=== PATIENT | female | born 1995 | race Caucasian/White ===

== ENCOUNTER 2019-01-17 11:14 | Emergency (ER) | payer SELFPAY | END 2019-01-17 12:10 | disposition left against medical advice (07) | LOC: ER 11:14 | DX: Z53.20 Procedure and treatment not carried out because of patient's decision for unspecified reasons (principal) ==

== ENCOUNTER 2019-01-17 18:08 | Emergency (ER) | payer MEDICAID ==
[2019-01-17] MEDS ORDERED: 0.9 % SODIUM CHLORIDE 1,000 ML BAG IV ONE ×2 (18:44→19:31)
--- NOTE | 2019-01-17 18:50 | Emergency Department Record ---
History of Present Illness - General Chief Complaint: Abdominal Pain Stated Complaint: PREG AMD CRAMPING Time Seen by Provider: 01/17/19 18:44 Source: Patient Mode of Arrival: Ambulatory - History of Present Illness Initial Comments: The patient is a [id number] EDC [birth year] who is 15 weeks . She wishes to deliver at [facility] although has not established care as she just moved here from [place]. She states that today she has had "intense cramps" that have been all day with sharp pains intermittently lasting 1 minute. The sharp pains have been between 5-10 all day, none since she has been here, and associated with a small amount of dark pink mucousy vaginal bleeding which began this morning. She had a high risk in the past with a delivery of a 29 week old baby on a prior . She states she has had NO CLOTS, NO tissue, passed. She feels dizzy and lightheaqded and has nausea for which she is on promethazine. She also takes pre- vitamins. - Related Data Patient : Yes Home Medications Medication Instructions Recorded Confirmed Last Taken Albuterol Sulfate [Proair Hfa] 1 - 2 puff IH .EVERY 4-6 HOURS PRN 01/17/19 01/17/19 Unknown Ferrous Sulfate [Iron] 325 mg PO DAILY 01/17/19 01/17/19 Unknown Pnv No.95/Ferrous Fum/Folic AC 1 each PO DAILY 01/17/19 01/17/19 Unknown [ Caplet] Allergies Allergy/AdvReac Type Severity Reaction Status Date / Time clarithromycin [From Biaxin] Allergy RASH Verified 01/17/19 18:29 sulfamethoxazole AdvReac fast heart Verified 01/17/19 18:29 [From Bactrim] rate trimethoprim [From Bactrim] AdvReac fast heart Verified 01/17/19 18:29 rate Travel Screening - Travel/Exposure Within Last 30 Days Have you traveled within the last 30 days?: No Review of Systems Reviewed: No additional complaints except as noted below Constitutional: Reports: As per HPI. Denies: Chills, Fever, Malaise, Night sweats, Weakness, Weight change Eyes: Reports: As per HPI. Denies: Eye discharge, Eye pain, Photophobia, Vision change ENT: Reports: As per HPI. Denies: Congestion, Dental pain, Ear pain, Epistaxis, Hearing loss, Throat pain Respiratory: Reports: As per HPI. Denies: Cough, Dyspnea, Hemoptysis, Stridor, Wheezes Cardiovascular: Reports: As per HPI. Denies: Arrhythmia, Chest pain, Dyspnea on exertion, Edema, Murmurs, Orthopnea, Palpitations, Paroxysmal nocturnal dyspnea, Rheumatic Fever, Syncope Endocrine: Reports: As per HPI. Denies: Fatigue, Heat or cold intolerance, Polydipsia, Polyuria Gastrointestinal: Reports: As per HPI. Denies: Abdominal pain, Constipation, Diarrhea, Hematemesis, Hematochezia, Melena, Nausea, Vomiting Genitourinary: Reports: As per HPI. Denies: Abnormal menses, Discharge, Dyspareunia, Dysuria, Frequency, Hematuria, Incontinence, Retention, Urgency Musculoskeletal: Reports: As per HPI. Denies: Arthralgia, Back pain, Gout, Joint swelling, Myalgia, Neck pain Skin: Reports: As per HPI. Denies: Bruising, Change in color, Change in hair/nails, Lesions, Pruritus, Rash Neurological: Reports: As per HPI. Denies: Abnormal gait, Confusion, Headache, Numbness, Paresthesias, Seizure, Tingling, Tremors, Vertigo, Weakness Psychiatric: Reports: As per HPI. Denies: Anxiety, Auditory hallucinations, Depression, Homicidal thoughts, Suicidal thoughts, Visual hallucinations Hematological/Lymphatic: Reports: As per HPI. Denies: Anemia, Blood Clots, Easy bleeding, Easy bruising, Swollen glands Past Medical History - SOCIAL HISTORY Smoking Status: Never smoker Alcohol Use: None Drug Use: None - RO[employer] History : 5 Para: 3 - RESPIRATORY Hx Respiratory Disorders: Yes Hx Asthma: Yes - CARDIOVASCULAR Hx Cardio Disorders: No - NEURO Hx Neuro Disorders: No - GI Hx GI Disorders: No - Hx Genitourinary Disorders: No - ENDOCRINE Hx Endocrine Disorders: No - MUSCULOSKELETAL Hx Musculoskeletal Disorders: No - PSYCH Hx Psych Problems: No - HEMATOLOGY/ONCOLOGY Hx Hematology/Oncology Disorders: Yes Hx Anemia: Yes Family Medical History Any Significant Family History?: No Physical Exam - General General Appearance: Alert, Oriented x3, Cooperative, No acute distress - Head Head exam: Normal inspection - Eye Eye exam: Normal appearance, PERRL Pupils: Normal accommodation - ENT ENT exam: Normal exam, Mucous membranes moist, Normal external ear exam, Normal orophraynx, TM's normal bilaterally Ear exam: Normal external inspection. negative: External canal tenderness Nasal Exam: Normal inspection. negative: Discharge, Sinus tenderness Mouth exam: Normal external inspection, Tongue normal Teeth exam: Normal inspection. negative: Dental caries Throat exam: Normal inspection. negative: Tonsillar erythema, Tonsillar exudate - Neck Neck exam: Normal inspection, Full ROM. negative: Lymphadenopathy, Meningismus, Tenderness - Respiratory Respiratory exam: Normal lung sounds bilaterally. negative: Accessory muscle use, Chest wall tenderness, Respiratory distress - Cardiovascular Cardiovascular Exam: Regular rate, Normal rhythm, Normal heart sounds - GI/Abdominal GI/Abdominal exam: Soft, Normal bowel sounds, Other (patient is obese, unable to palpate uterus, no tenderness anywhere on abdomen). negative: Distended, Guarding, Rebound, Rigid, Tenderness - Rectal Rectal exam: Deferred - exam: Deferred - Extremities Extremities exam: Normal inspection, Full ROM, Normal capillary refill. negative: Tenderness - Back Back exam: Reports: Normal inspection, Full ROM. Denies: Muscle spasm, Rash noted, Tenderness - Neurological Neurological exam: Alert, Normal gait, Oriented X3, Reflexes normal - Psychiatric Psychiatric exam: Normal affect, Normal mood - Skin Skin exam: Dry, Intact, Normal color, Warm Course Vital Signs 01/17/19 18:20 Pulse Rate [ 85 Pulse Ox Probe] Respiratory 18 Rate Blood Pressure 113/50 [Left Arm] Pulse Ox 100 - Reevaluation(s) Reevaluation #1: 01/17/19 19:[address] Austin OB attending who accepts patient to OB triage for ultraso und and further care. Patient understands and is in agreement. Reevaluation #2: Attempted to obtain heart tones without success. 01/17/19 19:50 Medical Decision Making - Management Options MDM Management: Additional Work-up Planned (e.g. ADM/Transfer/OP Study) (Transfer to [facility] for ultrasound and OB care.) - Data Complexity MDM Data: Labs Ordered and/or Reviewed - Lab Data Result diagrams: 01/17/19 18:58 01/17/19 18:58 Disposition Disposition: Transfer Clinical Impression: at greater than 3 months gestation, Vaginal spotting Disposition: Acute Care Hospital Transfer Transfer To: [facility] Reason For Transfer: Ultrasound and OB Care Accepting Physician: Dr. Austin Time Discussed w/Accepting Physician: 19:51 Condition: (2) Stable Forms: Patient Portal Access Quality - Quality Measures Quality Measures: N/A - Blood Pressure Screening Does Patient Have Any of the Following: No Blood Pressure Classification: Normal BP Reading Systolic Measurement: 113 Diastolic Measurement: 50 Screening for High Blood Pressure: < Normal BP, F/U Not Required > [G8703]
[2019-01-17 19:09] LABS: URINE APPEARANCE CLOUDY; URINE BILIRUBIN NEGATIVE (NEGATIVE); URINE BLOOD NEGATIVE (NEGATIVE); URINE COLOR YELLOW; URINE GLUCOSE (UA) NEGATIVE (NEGATIVE); URINE KETONE NEGATIVE (NEGATIVE); URINE LEUKOCYTE ESTERASE NEGATIVE (NEGATIVE); URINE NITRITE NEGATIVE (NEGATIVE); URINE PROTEIN NEGATIVE (NEGATIVE); URINE UROBILINOGEN 0.2 E.U./dL (0.20 - 1.00)
[2019-01-17 19:10] LABS: ABSOLUTE NEUTROPHIL COUNT 8.44; BASO % 0.4 % (0-6); EOS % 2.4 % (0-6); GRAN % 71.3 % (47-80); HEMATOCRIT 36.4 % (35.0-47.0); LYMPH % 20.9 % (16-45); MEAN CORPUSCULAR HGB CONC 30.2 g/dl (32-36); MEAN PLATELET VOLUME 10.5 fl (7.4-10.4); PLATELET COUNT 285 K/uL (130-400); RED BLOOD COUNT 4.79 M/uL (3.80-5.40); RED CELL DISTRIBUTION WIDTH 17.9 % (11.5-14.5); WHITE BLOOD COUNT W/O DIFF 11.8 K/uL (4.2-12.2)
[2019-01-17 19:11] LABS: MEAN CORPUSCULAR HEMOGLOBIN 22.9 pg (27-33)
[2019-01-17 19:20] LABS: BLOOD UREA NITROGEN 8 mg/dL (6-20); CREATININE 0.6 mg/dL (0.5-0.9); EST GLOMERULAR FILTRATION RATE > 60 mL/min
[2019-01-17 19:21] LABS: TOTAL PROTEIN 7.2 g/dL (6.6-8.7)
[2019-01-17 19:23] LABS: GLUCOSE,RANDOM 76 mg/dL (74-109)
[2019-01-17 19:26] LABS: ALB/GLOB RATIO 1.4 (1.1-1.8); ALBUMIN 4.2 g/dL (4.0-5.0); ALKALINE PHOSPHATASE 79 U/L (35-104); ALT/SGPT 10 U/L (<33); AST/SGOT 12 U/L (10.0-35.0)
== END 2019-01-17 19:57 | disposition short-term general hospital (02) ==
LOC: ER 18:08 → MERGE 18:08 → ER 19:57
DX: O26.852 Spotting complicating pregnancy, second trimester (principal); R10.9 Unspecified abdominal pain; Z3A.15 15 weeks gestation of pregnancy
CPT/HCPCS: 80053; 81003; 85025; 96360; 99284; J7030

== ENCOUNTER 2019-02-17 11:01 | Emergency (ER) | payer MEDICAID ==
--- NOTE | 2019-02-17 11:18 | Emergency Department Record ---
History of Present Illness - General Chief complaint: Facial Swelling Stated complaint: INFECTION ON FACE Time Seen by Provider: 02/17/19 11:07 Source: Patient Mode of Arrival: Ambulatory Limitations: No limitations - History of Present Illness Initial Comments: The patient is here due to L facial pain and swelling. She is having pain when she opens her mouth and swallows. There is no voice changes, hoarseness, fever, or trouble breathing. The patient has had her tonsils removed. MD Complaint: Other Onset/Timin -: Days(s) Exposure: Unknown Symptoms: Facial swelling - Related Data Home Medications Medication Instructions Recorded Confirmed Last Taken Aspirin [Aspir-Low] 81 mg PO DAILY 02/17/19 02/17/19 02/16/19 Previous Rx's Medication Instructions Recorded Amoxicillin 500Mg Capsule [Amoxil] 500 mg PO TID #21 tab 02/17/19 Allergies Allergy/AdvReac Type Severity Reaction Status Date / Time clarithromycin [From Biaxin] Allergy RASH Verified 02/05/19 10:12 sulfamethoxazole AdvReac fast heart Verified 02/05/19 10:12 [From Bactrim] rate trimethoprim [From Bactrim] AdvReac fast heart Verified 02/05/19 10:12 rate Travel Screening - Travel/Exposure Within Last 30 Days Have you traveled within the last 30 days?: No - Travel/Exposure Within Last Year Have you traveled outside the [place] in the last year?: No - Additonal Travel Details Have you been exposed to anyone with a communicable illness?: No - Travel Symptoms Symptom Screening: None Review of Systems Constitutional: Denies: Chills, Fever Eyes: Denies: Eye discharge ENT: Denies: Congestion Respiratory: Denies: Cough, Dyspnea Past Medical History - SOCIAL HISTORY Smoking Status: Never smoker Alcohol Use: None Drug Use: None - RESPIRATORY Hx Respiratory Disorders: Yes Hx Asthma: Yes - CARDIOVASCULAR Hx Cardio Disorders: No - NEURO Hx Neuro Disorders: No - GI Hx GI Disorders: No - Hx Genitourinary Disorders: No - ENDOCRINE Hx Endocrine Disorders: No - MUSCULOSKELETAL Hx Musculoskeletal Disorders: No - PSYCH Hx Psych Problems: No - HEMATOLOGY/ONCOLOGY Hx Hematology/Oncology Disorders: Yes Hx Anemia: Yes Family Medical History Any Significant Family History?: No Physical Exam - General General Appearance: Alert, Oriented x3, Cooperative, No acute distress - Head Head exam: Atraumatic, Normocephalic - Eye Eye exam: Normal appearance, PERRL, EOMI. negative: Conjunctival injection, Periorbital swelling, Periorbital tenderness - ENT ENT exam: Mucous membranes moist, Normal orophraynx, TM's normal bilaterally. negative: Normal exam (There is no swelling, erythema or edema that I can appreciate.), Mucous membranes dry Teeth exam: Dental caries, Dental tenderness # (17 and 18.), Gingival enlargement, Other (There is significant tenderness to palpation over the angle of the L mandible. ). negative: Normal inspection Throat exam: Normal inspection. negative: Tonsillar erythema, Tonsillomegaly, Tonsillar exudate - Neck Neck exam: Normal inspection, Full ROM. negative: Lymphadenopathy, Meningismus, Tenderness - Respiratory Respiratory exam: Normal lung sounds bilaterally. negative: Respiratory distress - Cardiovascular Cardiovascular Exam: Regular rate, Normal rhythm, Normal heart sounds - Extremities Extremities exam: Normal inspection - Neurological Neurological exam: Alert. negative: Motor sensory deficit Course Vital Signs 02/17/19 11:04 Temperature 98.3 F Pulse Rate 94 H Respiratory 20 Rate Blood Pressure 117/66 Pulse Ox 99 - Reevaluation(s) Reevaluation #1: I did explain to the patient it appears she is having trouble with her 2 back molars on the L. She has had dental work done to # 18, but # 17 is partially caried and mostly rotted away. That area seems to be the problem because it is quite tender with palpation. She is to follow up with her Dentist JOSE RAUL and may return to the ER for any worsening symptoms. 02/17/19 11:25 Disposition Disposition: Discharge Clinical Impression: Pain due to dental caries Disposition: Home, Self-Care Condition: (2) Stable Instructions: Toothache (ED) Additional Instructions: Please continue the Tylenol for pain and please use the Amoxicllin as directed. Please see a Dentist JOSE RAUL. Return to the ER for any worsening symptoms, swelling, fever or pain. Prescriptions: Amoxicillin 500Mg Capsule [Amoxil] 500 mg PO TID #21 tab Forms: Patient Portal Access Time of Disposition: 11:18 Quality - Quality Measures Quality Measures: N/A - Blood Pressure Screening View Details: Yes Does Patient Have Any of the Following: No Blood Pressure Classification: Normal BP Reading Systolic Measurement: 117 Diastolic Measurement: 66 Screening for High Blood Pressure: < Normal BP, F/U Not Required > [G5241]
== END 2019-02-17 11:30 | disposition home or self-care (01) ==
LOC: ER 11:01
DX: K02.9 Dental caries, unspecified (principal)
CPT/HCPCS: 99283

== ENCOUNTER 2019-04-07 17:11 | Emergency (ER) | payer MEDICAID ==
--- NOTE | 2019-04-07 17:48 | Emergency Department Record ---
History of Present Illness - General Chief Complaint: Cough Stated Complaint: VOMITING,COUGH,CHEST SORE Time Seen by Provider: 04/07/19 17:41 Source: Patient Mode of Arrival: Ambulatory Limitations: No limitations - History of Present Illness Initial Comments: 23 yo female presents to ED for evaluation of non-productive cough symptoms for several days and several episodes of nausea and vomiting this morning, now improved. Patient denies fevers, chills, or abdominal pain symptoms, denies myalgias as well. Patient does report a history of asthma, did receive influenza vaccination last month. MD Complaint: Cough Onset/Timin -: Days(s) Severity: Mild Severity scale (1-10): 3 Consistency: Constant Improves With: Nothing Worsens With: Nothing Associated Symptoms: Nausea, Vomiting Treatments Prior to Arrival: None - Related Data Previous Rx's Medication Instructions Recorded Amoxicillin 500Mg Capsule [Amoxil] 500 mg PO TID #21 tab 02/17/19 Ondansetron [Zofran Odt] 4 mg PO Q8H PRN #15 tab.rapdis 04/07/19 Prednisone [Prednisone 20Mg] 20 mg PO TID #15 tab 04/07/19 Allergies Allergy/AdvReac Type Severity Reaction Status Date / Time clarithromycin [From Biaxin] Allergy RASH Verified 02/05/19 10:12 sulfamethoxazole AdvReac fast heart Verified 02/05/19 10:12 [From Bactrim] rate trimethoprim [From Bactrim] AdvReac fast heart Verified 02/05/19 10:12 rate Travel Screening - Travel/Exposure Within Last 30 Days Have you traveled within the last 30 days?: No - Travel/Exposure Within Last Year Have you traveled outside the [place] in the last year?: No - Additonal Travel Details Have you been exposed to anyone with a communicable illness?: No - Travel Symptoms Symptom Screening: Fatigue, Diarrhea, Vomiting Review of Systems Constitutional: Denies: Chills, Fever, Malaise, Night sweats Eyes: Denies: Eye discharge, Eye pain ENT: Denies: Congestion, Ear pain, Epistaxis Respiratory: Reports: Cough. Denies: Dyspnea, Hemoptysis, Wheezes Cardiovascular: Denies: Chest pain, Dyspnea on exertion Endocrine: Denies: Fatigue, Heat or cold intolerance Gastrointestinal: Reports: Nausea, Vomiting. Denies: Abdominal pain, Constipation Genitourinary: Denies: Incontinence, Retention Musculoskeletal: Denies: Arthralgia, Back pain Skin: Denies: Bruising, Change in color Neurological: Denies: Abnormal gait, Confusion, Headache, Numbness, Tingling, Tremors Psychiatric: Denies: Anxiety Hematological/Lymphatic: Denies: Anemia, Blood Clots Past Medical History - SOCIAL HISTORY Smoking Status: Never smoker Alcohol Use: None Drug Use: None - RESPIRATORY Hx Respiratory Disorders: Yes Hx Asthma: Yes - CARDIOVASCULAR Hx Cardio Disorders: No - NEURO Hx Neuro Disorders: No - GI Hx GI Disorders: No - Hx Genitourinary Disorders: No - ENDOCRINE Hx Endocrine Disorders: No - MUSCULOSKELETAL Hx Musculoskeletal Disorders: No - PSYCH Hx Psych Problems: No - HEMATOLOGY/ONCOLOGY Hx Hematology/Oncology Disorders: Yes Hx Anemia: Yes Family Medical History Any Significant Family History?: Yes Hx Diabetes: Mother Hx Heart Disease: Mother Physical Exam - General General Appearance: Alert, Oriented x3, Cooperative, Mild distress Limitations: No limitations - Head Head exam: Atraumatic, Normocephalic, Normal inspection Head exam detail: negative: Abrasion, Contusion, Gallegos's sign, General tenderness, Hematoma, Laceration - Eye Eye exam: Normal appearance. negative: Conjunctival injection, Periorbital swelling, Periorbital tenderness, Scleral icterus - ENT Ear exam: negative: Auricular hematoma, Auricular trauma Nasal Exam: negative: Active bleeding, Discharge, Dried blood, Foreign body Mouth exam: negative: Drooling, Laceration, Muffled voice, Tongue elevation - Neck Neck exam: Normal inspection. negative: Meningismus, Tenderness - Respiratory Respiratory exam: Normal lung sounds bilaterally. negative: Respiratory distress, Rhonchi, Stridor, Wheezes - Cardiovascular Cardiovascular Exam: Regular rate, Normal rhythm, Normal heart sounds - GI/Abdominal GI/Abdominal exam: Soft. negative: Distended, Rebound, Rigid, Tenderness - Rectal Rectal exam: Deferred - exam: Deferred - Extremities Extremities exam: Normal inspection. negative: Pedal edema, Tenderness - Back Back exam: Denies: CVA tenderness (R), CVA tenderness (L) - Neurological Neurological exam: Alert, Normal gait, Oriented X3 - Psychiatric Psychiatric exam: Normal affect, Normal mood - Skin Skin exam: Normal color. negative: Abrasion Type of lesion: negative: abrasion Course Vital Signs 04/07/19 17:18 Temperature 98.0 F Pulse Rate 103 H Respiratory 20 Rate Blood Pressure 123/64 Pulse Ox 98 - Reevaluation(s) Reevaluation #1: 04/07/19 17:50 Patient's lung sounds are CTA bilaterally, no wheezes or crackles are present on examination. Patient's abdominal examination is also benign without pain symptoms. Examination appears c/w probable Bronchitis (likely viral) with improving nausea/vomiting symptoms. Will treat with Prednisone and Zofran as directed. Patient did receive influenza vaccination, and symptoms are unlikely to be the result of influenza. No evidence for bacterial etiology on examination as well. Patient is in agreement with the plan of care as discussed, patient appears stable for discharge at this time. Disposition Disposition: Discharge Clinical Impression: Acute bronchitis Qualifiers: Bronchitis organism: unspecified organism Qualified Code(s): J20.9 - Acute bronchitis, unspecified Nausea & vomiting Qualifiers: Vomiting type: unspecified Vomiting Intractability: non-intractable Qualified Code(s): R11.2 - Nausea with vomiting, unspecified Disposition: Home, Self-Care Condition: (2) Stable Instructions: Acute Bronchitis (ED) Additional Instructions: Return to ED if your symptoms worsen or if you have any concerns. Zofran, prednisone as directed. Follow-up with your family doctor in 3-5 days directed. Prescriptions: Prednisone [Prednisone 20Mg] 20 mg PO TID #15 tab Ondansetron [Zofran Odt] 4 mg PO Q8H PRN #15 tab.rapdis PRN Reason: Nausea/Vomiting Forms: Patient Portal Access Time of Disposition: 17:47 Quality - Quality Measures Quality Measures: N/A - Blood Pressure Screening Does Patient Have Any of the Following: No Blood Pressure Classification: Pre-Hypertensive BP Reading Systolic Measurement: 123 Diastolic Measurement: 64 Screening for High Blood Pressure: < Pre-Hypertensive BP, F/U Documented > [G8950] Pre-Hypertensive Follow-up Interventions: Referral to alternative/primary care provider.
== END 2019-04-07 18:13 | disposition home or self-care (01) ==
LOC: ER 17:11
DX: J20.9 Acute bronchitis, unspecified (principal); R11.2 Nausea with vomiting, unspecified
CPT/HCPCS: 99283